=== PATIENT | male | born 1980 | race Caucasian/White ===

== ENCOUNTER 2017-09-06 17:03 | Emergency (ER) | payer OTHER, SELFPAY ==
[2017-09-06 17:46] VITALS: BP 158/96; PULSE 117; RESP 20; TEMP 37.4; O2SAT 98; BMI 29.3
[2017-09-06 17:58] LABS: UTC Influenza A Antigen Negative (Negative); UTC Influenza B Antigen Positive (Negative)
--- NOTE | 2017-09-06 18:06 | HMH.EDUTC ---
[facility] [place] Disposition Clinical Impression: Influenza Sinusitis Qualifiers: Sinusitis location: other Chronicity: unspecified Qualified Code(s): J32.9 - Chronic sinusitis, unspecified Disposition: Home, Self-Care Condition on Discharge: Good Instructions: Sinusitis, Sinus Headache, DI for Sinusitis, How to Avoid a Cold or Flu, DI for Nasal Congestion Additional Instructions: ? Start Tamiflu today if you are going to take it. Discussed risk and possible benefits. ? Lots of rest ? Increase Fluids water, Gatorade, powerade, pedialyte,if infant/toddler/child ? Alternate Tylenol and / or ibuprofen as discussed for fever, aches, chills x 24 hours without medication for symptoms ? Follow up IMMEDIATELY for new or worsening Symptoms OR no noticeable improvement over the next 48-72 hours, 911 for difficulty or breathing ? You or your child area contagious until no fever, aches, chills for 24 hours with medication for symptoms Prescriptions: Ondansetron [Zofran 4mg ODT] 4 mg PO Q8H PRN #10 tab.rapdis PRN Reason: Nausea Oseltamivir Phosphate [Tamiflu 75mg Capsule] 75 mg PO BID #10 cap Promethazine/Dextromethorphan [Promethazine-Dm Syrup] 5 ml PO Q4H PRN #200 syrup PRN Reason: Cough Referrals: Noah Mills MD [Primary Care Provider] - Forms: Work/School Release Time of Disposition: 18:18 Medical Decision Making - Medical Records Medical records reviewed: Yes: I reviewed the patient's medical records. Vital Signs: 09/06/17 17:46 Temperature 99.4 F Temperature Source Temporal Artery Scan Pulse Rate [Right] 117 H Respiratory Rate 20 Blood Pressure [Right Arm] 158/96 Blood Pressure Mean [Right Arm] 116 Blood Pressure Source [Right Arm] Automatic Cuff Blood Pressure Position [Right Arm] Sitting 02 Sat by Pulse Oximetry 98 Oxygen Delivery Method Room Air - Lab Data Lab Results 09/06/17 17:42: Influenza Type A Ag Negative, Influenza Type B Ag Positive A - James Inquiry Pt receiving controlled substance: No James was queried for this patient: No [facility] [place] HPI - General Stated complaint: Fever; body aches; cough;no appetite Mode of Arrival: Ambulatory Source of Information: Patient Limitations: No Limitations Description of Symptoms (Recalled from Triage Doc. by RN): STATES FLU SX X2 DAYS HEENT Symptoms (Recalled from RN notes): Yes Resp Symptoms (Recalled from RN notes): No Skin Symptoms (Recalled from RN notes): No MS Symptoms (Recalled from RN notes): No Functional Status (Recalled from RN notes): N - History of Present Illness Provider Complaint: Patient state that he has been having fever, chills sinus pain and pressure along with nausea and not feeling well State that he thinks he has a sinus infection because his snot changed from yellow to yellowish brown State that he just doesn't feel well - Related Data Previous Rx's Medication Instructions Recorded Ondansetron [Zofran 4mg ODT] 4 mg PO Q8H PRN #10 tab.rapdis 09/06/17 Oseltamivir Phosphate [Tamiflu 75 mg PO BID #10 cap 09/06/17 75mg Capsule] Promethazine/Dextromethorphan 5 ml PO Q4H PRN #200 syrup 09/06/17 [Promethazine-Dm Syrup] Allergies Allergy/AdvReac Type Severity Reaction Status Date / Time No Known Allergies Allergy Verified 09/06/17 17:53 - Worker's Comp Is this a Worker's Comp case?: No [facility] History I have reviewed the patient's past medical history: Yes - *Social History Alcohol Intake: never - Psychiatric History Expresses thoughts of harming self/others: None Suicide Plan Description: No Plan ROS Obtained: Yes All systems reviewed & no additional complaints - Constitutional Constitutional: Reports body ache, Reports chills, Reports fever(s) - ENT Ears, Nose, Mouth, and Throat: Reports sinus pain, Reports sinus pressure, Reports sore throat Physical Exam - General General appearance: alert, in no apparent distress - Expanded ENT Exam Nose exam: Present: sinus tenderness, ot
--- NOTE | 2017-09-06 18:11 | ED_ITS ---
[facility] [place] Disposition Clinical Impression: Influenza Sinusitis Qualifiers: Sinusitis location: other Chronicity: unspecified Qualified Code(s): J32.9 - Chronic sinusitis, unspecified Disposition: Home, Self-Care Condition on Discharge: Good Instructions: Sinusitis, Sinus Headache, DI for Sinusitis, How to Avoid a Cold or Flu, DI for Nasal Congestion Additional Instructions: ? Start Tamiflu today if you are going to take it. Discussed risk and possible benefits. ? Lots of rest ? Increase Fluids water, Gatorade, powerade, pedialyte,if infant/toddler/child ? Alternate Tylenol and / or ibuprofen as discussed for fever, aches, chills x 24 hours without medication for symptoms ? Follow up IMMEDIATELY for new or worsening Symptoms OR no noticeable improvement over the next 48-72 hours, 911 for difficulty or breathing ? You or your child area contagious until no fever, aches, chills for 24 hours with medication for symptoms Prescriptions: Ondansetron [Zofran 4mg ODT] 4 mg PO Q8H PRN #10 tab.rapdis PRN Reason: Nausea Oseltamivir Phosphate [Tamiflu 75mg Capsule] 75 mg PO BID #10 cap Promethazine/Dextromethorphan [Promethazine-Dm Syrup] 5 ml PO Q4H PRN #200 syrup PRN Reason: Cough Referrals: Noah Mills MD [Primary Care Provider] - Forms: Work/School Release Time of Disposition: 18:18 Medical Decision Making - Medical Records Medical records reviewed: Yes: I reviewed the patient's medical records. Vital Signs: 09/06/17 17:46 Temperature 99.4 F Temperature Source Temporal Artery Scan Pulse Rate [Right] 117 H Respiratory Rate 20 Blood Pressure [Right Arm] 158/96 Blood Pressure Mean [Right Arm] 116 Blood Pressure Source [Right Arm] Automatic Cuff Blood Pressure Position [Right Arm] Sitting 02 Sat by Pulse Oximetry 98 Oxygen Delivery Method Room Air - Lab Data Lab Results 09/06/17 17:42: Influenza Type A Ag Negative, Influenza Type B Ag Positive A - James Inquiry Pt receiving controlled substance: No James was queried for this patient: No [facility] [place] HPI - General Stated complaint: Fever; body aches; cough;no appetite Mode of Arrival: Ambulatory Source of Information: Patient Limitations: No Limitations Description of Symptoms (Recalled from Triage Doc. by RN): STATES FLU SX X2 DAYS HEENT Symptoms (Recalled from RN notes): Yes Resp Symptoms (Recalled from RN notes): No Skin Symptoms (Recalled from RN notes): No MS Symptoms (Recalled from RN notes): No Functional Status (Recalled from RN notes): N - History of Present Illness Provider Complaint: Patient state that he has been having fever, chills sinus pain and pressure along with nausea and not feeling well State that he thinks he has a sinus infection because his snot changed from yellow to yellowish brown State that he just doesn't feel well - Related Data Previous Rx's Medication Instructions Recorded Ondansetron [Zofran 4mg ODT] 4 mg PO Q8H PRN #10 tab.rapdis 09/06/17 Oseltamivir Phosphate [Tamiflu 75 mg PO BID #10 cap 09/06/17 75mg Capsule] Promethazine/Dextromethorphan 5 ml PO Q4H PRN #200 syrup 09/06/17 [Promethazine-Dm Syrup] Allergies Allergy/AdvReac Type Severity Reaction Status Date / Time No Known Allergies Allergy Verified 09/06/17 17:53 - Worker's Comp Is this a Worker's Comp case?: No
== END 2017-09-06 18:38 | disposition home or self-care (01) ==
LOC: ER 17:17 → UTC 17:23
PROVIDERS: Emergency Provider Nurse Practitioner; Family Provider Family Medicine; PCP Family Medicine
DX: J11.1 Influenza due to unidentified influenza virus with other respiratory manifestations (principal)
CPT/HCPCS: 87804; 96372; 99201

== ENCOUNTER → 2019-03-06 21:28 | Outpatient (CLI) | payer OTHER, SELFPAY | PROVIDERS: PCP Nurse Practitioner; Visit Provider Nurse Practitioner | DX: R00.2 Palpitations (principal); R06.02 Shortness of breath | CPT/HCPCS: 93225; 93226 ==

== ENCOUNTER 2021-07-04 16:51 | Emergency (ER) | payer BC, SELFPAY ==
[2021-07-04 17:22] VITALS: BP 148/70; PULSE 79; RESP 19; TEMP 36.9; O2SAT 99; BMI 30.9
--- NOTE | 2021-07-04 17:33 | HMH.EDUTC ---
[facility] [place] Disposition Clinical Impression: Sinusitis Qualifiers: Sinusitis location: unspecified location Chronicity: unspecified Qualified Code(s): J32.9 - Chronic sinusitis, unspecified Disposition: Home, Self-Care Condition on Discharge: Good Instructions: Sinusitis, DI for Sinusitis Additional Instructions: *Monitor Temp, Over the counter Motrin or Tylenol as directed/as needed Tylenol every 4 hours and Motrin every 6 hours (as long as your family doctor has told you that you can take it) for fever or pain. and straight to ER if unable to lower temp less than 101.0 after medication given *Warm salt water gargles may help to soothe the throat *Throat Lozenges *Warm fluids like tea with honey may help to soothe the throat *Sleep elevated *Humidifier/Vaporizer Take medication as prescribed FOllow if needed Follow up IMMEDIATELY for new or worsening symptoms or no Noticeable improvement over the next 48-72 hours. 911 for difficulty breathing or swallowing Prescriptions: Benzonatate [Benzonatate 100mg cap] 100 mg PO Q8HP PRN #30 cap PRN Reason: Cough Transmission Status: Pending to [id number] predniSONE [Prednisone 20mg Tab] 20 mg PO BID 5 Days #10 tab Transmission Status: Pending to [id number] Azithromycin [Z-Reginaldo 250mg Tab] 250 mg PO DIRECTED #6 tab Transmission Status: Pending to [id number] Referrals: Noah Mills MD [Primary Care Provider] - As needed Time of Disposition: 17:49 Medical Decision Making - James Inquiry Pt receiving controlled substance: No James was queried for this patient: No Vital Signs: 07/04/21 17:22 07/04/21 17:43 Temperature 98.4 F 98.4 F Temperature Source Oral Pulse Rate 79 Pulse Rate [Right Brachial] 79 Respiratory Rate 19 19 Blood Pressure 148/70 H Blood Pressure [Right Arm] 148/70 H Blood Pressure Mean [Right Arm] 96 Blood Pressure Source [Right Arm] Automatic Cuff Blood Pressure Position [Right Arm] Sitting 02 Sat by Pulse Oximetry 99 [facility] [place] HPI - General Stated complaint: poss sinus infection Time Seen by Provider: 07/04/21 17:33 Description of Symptoms (Recalled from Triage Doc. by RN): PT C/O SINUS PAIN, PRESSURE, AND DRAINAGE WITH A PRODUCTIVE COUGH. COUGHING UP DARK MUSCOUS X'S 3 DAYS. DENIES ANY FEVER. HEENT Symptoms (Recalled from RN notes): No Resp Symptoms (Recalled from RN notes): Yes Skin Symptoms (Recalled from RN notes): No MS Symptoms (Recalled from RN notes): No Functional Status (Recalled from RN notes): WNL - History of Present Illness Provider Complaint: Patient states that he feels like he may have a sinus infection State that he has been having pressure like feeling behind his eyes and sinus headache States that he can feel drainage in the back of his throat and at times he is able to cough it up States that today he was still feeling the pressure so he came in to get checked - Related Data Home Medications Medication Instructions Recorded Confirmed Losartan Potassium 25 mg PO DAILY 08/08/19 05/12/20 Omeprazole 40 mg PO DAILY 08/08/19 05/12/20 Previous Rx's Medication Instructions Recorded Azithromycin [Z-Reginaldo 250mg Tab] 250 mg PO DIRECTED #6 tab 07/04/21 Benzonatate [Benzonatate 100mg 100 mg PO Q8HP PRN #30 cap 07/04/21 cap] predniSONE [Prednisone 20mg 20 mg PO BID 5 Days #10 tab 07/04/21 Tab] Allergies Allergy/AdvReac Type Severity Reaction Status Date / Time No Known Allergies Allergy Verified 05/12/20 17:11 - Worker's Comp Is this a Worker's Comp case?: No Is this an [facility] Worker's Comp?: No Is this a [facility] Worker's Comp?: No [facility] History - Hepatitis A Screen Drug use history?: No High risk sexual behaviors?: No History of sexually transmitted infection?: No Currently employed?: No Childcare worker?: No Do you have indoor plumbing?: Yes Do you have electricity?: Yes Attestation statement:: This patient has been screened for Hepati
[2021-07-04 17:43] VITALS: BP 148/70; PULSE 79; RESP 19; TEMP 36.9; O2SAT 99
== END 2021-07-04 17:50 | disposition home or self-care (01) ==
PROVIDERS: Emergency Provider Nurse Practitioner; PCP Family Medicine
DX: J32.9 Chronic sinusitis, unspecified (principal)
CPT/HCPCS: 99202; G0463

== ENCOUNTER 2021-08-19 09:19 | Emergency (ER) | payer BC, SELFPAY ==
[2021-08-19 10:45] VITALS: BP 149/92; PULSE 91; RESP 19; TEMP 36.8; O2SAT 98; BMI 36.4
[2021-08-19 11:01] VITALS: BP 149/92; PULSE 91; RESP 19; TEMP 36.8; O2SAT 98
--- NOTE | 2021-08-19 11:31 | HMH.EDUTC ---
[facility] Disposition Clinical Impression: Sinusitis Qualifiers: Sinusitis location: unspecified location Chronicity: unspecified Qualified Code(s): J32.9 - Chronic sinusitis, unspecified Disposition: Home, Self-Care Condition on Discharge: Good Instructions: Sinusitis, DI for Sinusitis, Azithromycin, Prednisone Additional Instructions: *Monitor Temp, Over the counter Motrin or Tylenol as directed/as needed Tylenol every 4 hours and Motrin every 6 hours (as long as your family doctor has told you that you can take it) for fever or pain. and straight to ER if unable to lower temp less than 101.0 after medication given *Warm salt water gargles may help to soothe the throat *Throat Lozenges *Warm fluids like tea with honey may help to soothe the throat *Sleep elevated *Humidifier/Vaporizer Follow up IMMEDIATELY for new or worsening symptoms or no Noticeable improvement over the next 48-72 hours. 911 for difficulty breathing or swallowing You were tested for today for COVID19 your test result should be back in the next 24-48 hours, you may check your results on the [facility] My Health Portal if you have trouble logging on you can call support or you will get a call if your results are Positive You was given a handout with instructions for Self Quarantine and Self isolation for while you wait on test results and what to do if they are positive If you are positive the Health Dept will be contacting you also Make sure to take your Vitamins Vit. C Vit D and Zinc if you can take them Prescriptions: Benzonatate [Benzonatate 100mg cap] 100 mg PO Q8HP PRN #15 cap PRN Reason: Cough Transmission Status: Pending to [facility] predniSONE [Prednisone 20mg Tab] 20 mg PO BID #10 tab Transmission Status: Pending to [facility] Azithromycin [Z-Reginaldo 250mg Tab] 250 mg PO DIRECTED #6 tab Transmission Status: Pending to [facility] Referrals: Noah Mills MD [Primary Care Provider] - Forms: Work/School Release Medical Decision Making - James Inquiry Pt receiving controlled substance: No James was queried for this patient: No Vital Signs: 08/19/21 10:45 08/19/21 11:01 Temperature 98.2 F 98.2 F Temperature Source Oral Pulse Rate 91 H Pulse Rate [Right Brachial] 91 H Respiratory Rate 19 19 Blood Pressure 149/92 H Blood Pressure [Right Arm] 149/92 H Blood Pressure Mean [Right Arm] 111 Blood Pressure Source [Right Arm] Automatic Cuff Blood Pressure Position [Right Arm] Sitting 02 Sat by Pulse Oximetry 98 Oxygen Delivery Method Room Air Orders (Tests/Meds): ORDERS Category Date Time Status Covid-19 Nasal PCR ([facility]) Routine Lab 08/19/21 10:55 Received Medical Decision Narrative: Patient state that he has taken azithromycin and prednisone in the past without complications or reactions [facility] HPI - General Stated complaint: cough,runny nose,congestion Time Seen by Provider: 08/19/21 11:31 Mode of Arrival: Ambulatory Source of Information: Patient Limitations: No Limitations Description of Symptoms (Recalled from Triage Doc. 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
== END 2021-08-19 11:51 | disposition home or self-care (01) ==
PROVIDERS: Emergency Provider Nurse Practitioner; PCP Family Medicine
DX: J32.9 Chronic sinusitis, unspecified (principal); U07.1 COVID-19
CPT/HCPCS: 99202; C9803; G0463; U0003; U0005

== ENCOUNTER 2022-02-20 17:48 | Emergency (ER) | payer BC, SELFPAY ==
[2022-02-20 18:00] VITALS: BP 120/86; PULSE 80; RESP 18; TEMP 36.6; O2SAT 97; BMI 28.7
--- NOTE | 2022-02-20 18:30 | HMH.EDUTC ---
[facility] [place] Clinical Impression: Sinusitis Qualifiers: Sinusitis location: unspecified location Chronicity: acute Recurrence: non-recurrent Qualified Code(s): J01.90 - Acute sinusitis, unspecified Disposition: Home, Self-Care Condition on Discharge: Good Instructions: DI for Sinusitis Additional Instructions: Drink plenty of fluids. Take tylenol or ibuprofen for pain or fever. Take the medications as directed. Follow up with your regular doctor. GO TO THE ER FOR ANY WORSENING SYMPTOMS Prescriptions: Benzonatate [Benzonatate 100mg cap] 100 mg PO TIDP PRN #30 cap PRN Reason: Cough Transmission Status: Received by [facility] methylPREDNISolone [Medrol] 4 mg PO DIRECTED 6 Days #21 packet Transmission Status: Received by [id number] Azithromycin [Z-Reginaldo 250mg Tab*] 250 mg PO UD DOSE PK #6 tab Transmission Status: Received by [id number] Referrals: Noah Mills MD [Primary Care Provider] - Time of Disposition: 18:39 Medical Decision Making - Medical Records Medical records reviewed: No: I reviewed the patient's medical records. - James Inquiry Pt receiving controlled substance: No Vital Signs: 02/20/22 18:00 02/20/22 18:40 Temperature 97.8 F 97.8 F Temperature Source Oral Pulse Rate 80 Pulse Rate [Right Brachial] 80 Respiratory Rate 18 18 Blood Pressure 120/86 Blood Pressure [Right Arm] 120/86 Blood Pressure Mean [Right Arm] 97 Blood Pressure Source [Right Arm] Automatic Cuff Blood Pressure Position [Right Arm] Sitting 02 Sat by Pulse Oximetry 97 Oxygen Delivery Method Room Air [facility] [place] - General Stated complaint: cough and congestion Time Seen by Provider: 02/20/22 18:30 Mode of Arrival: Ambulatory Source of Information: Patient Limitations: No Limitations Description of Symptoms (Recalled from Triage Doc. by RN): PATIENT C/O SINUS CONGESTION THAT STARTED MONDAY HEENT Symptoms (Recalled from RN notes): Yes Resp Symptoms (Recalled from RN notes): No Skin Symptoms (Recalled from RN notes): No MS Symptoms (Recalled from RN notes): No Functional Status (Recalled from RN notes): WNL - History of Present Illness Provider Complaint: He states that for the past 2 days he has had worsening sinus congestion. He denies any fever or chills. He refuses a covid-19 test. - Related Data Home Medications Medication Instructions Recorded Confirmed Losartan Potassium 25 mg PO DAILY 08/08/19 02/20/22 Omeprazole 40 mg PO DAILY 08/08/19 02/20/22 Previous Rx's Medication Instructions Recorded Azithromycin [Z-Reginaldo 250mg Tab*] 250 mg PO UD DOSE PK #6 tab 02/20/22 Benzonatate [Benzonatate 100mg 100 mg PO TIDP PRN #30 cap 02/20/22 cap] methylPREDNISolone [Medrol] 4 mg PO DIRECTED 6 Days #21 02/20/22 packet Allergies Allergy/AdvReac Type Severity Reaction Status Date / Time No Known Allergies Allergy Verified 05/12/20 17:11 - Worker's Comp Is this a Worker's Comp case?: No [facility] History - Hepatitis A Screen Attestation statement:: This patient has been screened for Hepatitis A risk factors. I have reviewed the patient's past medical history: Yes Laterality Cases: Left: Arthroscopy Hip, Arthroscopy Knee - Social History Smoking Status: Never smoker Alcohol Intake: current Occupational Status: other Household Members: family ROS Obtained: Yes All systems reviewed & no additional complaints - Constitutional Constitutional: Reports as per HPI - Eyes Eyes: Denies eye discharge - ENT Ears, Nose, Mouth, and Throat: Reports as per HPI - Cardiovascular Cardiovascular: Denies chest pain - Respiratory Respiratory: Reports chest congestion, Reports cough Physical Exam - General General appearance: alert, in no apparent distress - Head Head exam: atraumatic, normocephalic, normal inspection - Eye Eye exam: Present: normal appearance, PERRL, EOMI - ENT ENT exam: Present:
[2022-02-20 18:40] VITALS: BP 120/86; PULSE 80; RESP 18; TEMP 36.6; O2SAT 97
== END 2022-02-20 18:44 | disposition home or self-care (01) ==
PROVIDERS: Emergency Provider Nurse Practitioner Family; PCP Family Medicine
DX: J01.90 Acute sinusitis, unspecified (principal)
CPT/HCPCS: 99212; G0463

== ENCOUNTER → 2023-03-01 23:19 | Outpatient (CLI) | payer BC, OTHER, SELFPAY ==
[2023-03-01 18:31] LABS: Basophils % 0.5 % (0.1-2.0); Eosinophils # 0.3 K/mm3 (0.0-0.4); Eosinophils % 5.2 % (0.1-12.0); Hematocrit 46.5 % (42.0-52.0); Hemoglobin 14.5 g/dL (14.1-18.0); Lymphocytes # 1.4 K/mm3 (0.7-4.5); Lymphocytes % 29.6 % (10-50); Mean Corpuscular HGB Conc 31.1 g/dL (31.8-35.4); Mean Corpuscular Hemoglobin 28.2 pg (27.0-31.2); Mean Corpuscular Volume 90.8 fl (80-94); Mean Platelet Volume 9.1 fl (7.4-10.4); Monocytes # 0.4 K/mm3 (0.1-1.0); Monocytes % 7.9 % (1.7-9.3); Neutrophils # 2.7 K/mm3 (1.8-7.8); Neutrophils % 56.9 % (37.0-80.0); Platelet Count 301 K/mm3 (142-424); Red Blood Count 5.12 M/mm3 (4.60-6.20); Red Cell Distribution Width 13.8 % (11.5-17.5); White Blood Count 4.8 K/mm3 (4.8-10.8)
[2023-03-01 18:59] LABS: Alanine Aminotransferase 30 U/L (12-78); Albumin Level 4.3 g/dl (3.5-5.0); Albumin/Globulin Ratio 1.4 (1.1-1.8); Alkaline Phosphatase 80 U/L (38-126); Anion Gap 11.7 mEq/L (5-15); Aspartate Amino Transferase 30 U/L (17-59); Bilirubin,Total 0.3 mg/dl (0.2-1.3); Blood Urea Nitrogen 19 mg/dl (9-20); Calcium 9.3 mg/dl (8.4-10.2); Carbon Dioxide 30 mmol/L (22.0-30.0); Chloride 106 mmol/L (98-107); Cholesterol 294 mg/dl (140-200); Estimated Glomerular Filt Rate 81 ml/min (>60); GFR (African American) 98 ML/MIN (>60); Globulin 3.1 g/dL (1.3-3.2); Glucose 112 mg/dl (74-100); HDL Cholesterol 59 mg/dl (40-60); Potassium 4.7 mmoL/L (3.5-5.1); Sodium 143 mmol/L (136-145); Total Protein,Serum 7.4 g/dl (6.3-8.2); Triglycerides 264 mg/dl (30-150); VLDL Cholesterol 53 mg/dL (0-40)
[2023-03-01 19:15] LABS: Direct LDL Cholesterol 168.01 mg/dL (100-129)
[2023-03-02 14:59] LABS: Hemoglobin A1C 5.8 % (4.0-6.0)
== END ==
PROVIDERS: PCP Family Medicine; Visit Provider Family Medicine
DX: R20.2 Paresthesia of skin (principal); Z79.899 Other long term (current) drug therapy
CPT/HCPCS: 80053; 80061; 83036; 84443; 85025

== ENCOUNTER → 2023-03-28 13:18 | Outpatient (POV) | payer BC, OTHER, SELFPAY | PROVIDERS: Visit Provider Specialist/Technologist | DX: Z00.00 Encounter for general adult medical examination without abnormal findings (principal) ==

== ENCOUNTER 2023-05-19 23:09 | Emergency (ER) | payer BC, OTHER, SELFPAY ==
[2023-05-19 23:10] VITALS: BP 160/92; PULSE 95; RESP 17; TEMP 36.8; O2SAT 97; BMI 29.9
--- NOTE | 2023-05-19 23:19 | PC.NURSE ---
Wound cleaned with chlorhexidine. Provider to bedside to assess wound. Provider requested lidocaine with epi for wound at this time. After provider administered, applied pressure bandage to wound.
--- NOTE | 2023-05-19 23:26 | XR_ITS ---
PROCEDURE INFORMATION: Exam: XR Right Shoulder Exam date and time: 05/19/2023 11:22 PM Age: 43 years old Clinical indication: Injury or trauma; Other: Puncture wound from mowing, R/O foreign body; Shoulder; Right; Additional info: Puncture wound from mowing, RO foreign body TECHNIQUE: Imaging protocol: Radiologic exam of the right shoulder. Views: 2 or more views. COMPARISON: No relevant prior studies available. FINDINGS: Bones/joints: No acute fracture or malalignment. Mild acromioclavicular and glenohumeral joint degenerative changes. Soft tissues: No radiopaque soft tissue foreign body. IMPRESSION: No radiopaque soft tissue foreign body. No acute osseous findings.
[2023-05-19 23:30] VITALS: BP 147/96; PULSE 97; O2SAT 97
--- NOTE | 2023-05-19 23:34 | HMH.EDGENADL ---
Discharge Plan Disposition Patient Disposition: Home, Self-Care Condition: Good Prescriptions Prescriptions: New cephalexin 500 mg capsule 500 mg PO TID 5 Days Qty: 15 0RF No Action phentermine [Adipex-P] 37.5 mg tablet 37.5 mg PO DAILY Qty: 30 2RF Rx Instructions: must administer 30 minutes before or 1-2 hours after breakfast azelastine 137 mcg (0.1 %) aerosol,spray 2 spray intranasal BID Qty: 30 3RF Rx Instructions: administer into each nostril venlafaxine 37.5 mg capsule,extended release 24hr See Rx Instructions .ROUTE .COMPLEX Qty: 90 3RF Dose Instruction: TAKE 1 CAPSULE DAILY Rx Instructions: TAKE 1 CAPSULE DAILY topiramate 50 mg tablet 50 mg PO DAILY Qty: 30 2RF omeprazole 40 mg capsule,delayed release(DR/EC) See Rx Instructions .ROUTE .COMPLEX Qty: 90 0RF Dose Instruction: TAKE 1 CAPSULE DAILY FOR GASTROESOPHAGEAL REFLUX DISEASE Rx Instructions: TAKE 1 CAPSULE DAILY FOR GASTROESOPHAGEAL REFLUX DISEASE losartan 25 mg tablet See Rx Instructions .ROUTE .COMPLEX Qty: 90 0RF Dose Instruction: TAKE 1 TABLET DAILY FOR HYPERTENSION Rx Instructions: TAKE 1 TABLET DAILY FOR HYPERTENSION Referrals Follow up/Referrals: Andrea Ramirez MD [Primary Care Provider] - See instructions Activity Restrictions/Add. Instructions Additional Instructions/Restrictions: You were evaluated in the emergency department today. Please clam picker your prescription at the pharmacy and complete the full course of antibiotics as prescribed. Keep your wound clean and dry. Do not submerge under any water. Allow the glue to fall off on its own. Should you start having bleeding again, apply direct pressure to the wound for at least 10 minutes. Return to the emergency department for any new or worsening symptoms. Clinical Impressions Clinical Impression: Puncture wound of right upper arm Qualifiers: Encounter type: initial encounter Qualified Code(s): S41.131A - Puncture wound without foreign body of right upper arm, initial encounter Instructions Patient Instructions: DI for Laceration Repair Discharge ED Provider: Destiny Guillory General Adult HPI General Chief complaint: Wound/Laceration Stated complaint: right arm laceration Time Seen by Provider: 05/19/23 23:10 Mode of Arrival: Ambulatory Source of Information: Patient Limitations: No Limitations Description of Symptoms (Recalled from ER Triage Doc. by RN): Patient reports he was doing yardwork today between about 3 and 6pm and at some point may have had a laceration to the posterior upper arm. Patient reports that bleeding will not stop. Upon triage, wound approximately 1 cm with small active bleeding. History of Present Illness HPI narrative: This patient is a 43-year-old male with history of hypertension and GERD presenting to the emergency department for evaluation with concern for wound to the posterior aspect of the right upper arm. Patient reports that he was mowing between 3 and 6 PM when he at some point noted that he had a wound to the posterior aspect of the right upper arm that was actively oozing blood. He has been unable to get the bleeding to stop despite dressings. He does not remember feeling any pain or noting any significant injury. He denies use of anticoagulation. He denies any significant pain associated with this. He is well prior to this with no other concerns at this time. Related Data Previous Rx's Medication Instructions Recorded venlafaxine 37.5 mg See Rx Instructions .Route 01/30/23 capsule,extended release 24 hr .COMPLEX #90 caps phentermine 37.5 mg tablet 37.5 mg PO DAILY #30 tabs 03/01/23 (Adipex-P) topiramate 50 mg tablet 50 mg PO DAILY #30 tabs 03/07/23 azelastine 137 mcg (0.1 %) nasal 2 spray intranasal BID Eustachian 03/28/23 spray aerosol tube dysfunction #30 mL losartan 25 mg tablet See Rx Instructions .Route 03/28/23 .COMPLEX #90 tabs omeprazol
[2023-05-20] VITALS: BP 130/76
--- NOTE | 2023-05-20 00:20 | PC.NURSE ---
Reassessed wound, no active bleeding at this time. Notified provider.
[2023-05-20 00:31] VITALS: BP 120/77
[2023-05-20 00:32] VITALS: BP 120/77; PULSE 84; RESP 18; TEMP 36.7; O2SAT 99
== END 2023-05-20 00:34 | disposition home or self-care (01) ==
PROVIDERS: Emergency Provider Emergency Medicine; PCP Family Medicine
DX: S41.131A Puncture wound without foreign body of right upper arm, initial encounter (principal); I10 Essential (primary) hypertension; K21.9 Gastro-esophageal reflux disease without esophagitis; G47.00 Insomnia, unspecified; F41.9 Anxiety disorder, unspecified; H93.13 Tinnitus, bilateral; X58.XXXA Exposure to other specified factors, initial encounter
CPT/HCPCS: 12001; 73030; 90715; 96372; 99283

== ENCOUNTER 2023-08-20 17:26 | Emergency (ER) | payer BC, OTHER, SELFPAY ==
[2023-08-20 17:45] VITALS: BP 137/85; PULSE 71; RESP 18; TEMP 36.8; O2SAT 96; BMI 34.1
--- NOTE | 2023-08-20 17:48 | EXP.UTC ---
Discharge Plan Disposition Patient Disposition: Home, Self-Care Condition: Good Prescriptions Prescriptions: New benzonatate [benzonatate] 100 mg capsule 100 mg PO TIDP PRN (Reason: Cough) Qty: 30 0RF methylprednisolone 4 mg Tablets,Dose Pack 4 mg PO DIRECTED 6 Days Qty: 21 0RF Rx Instructions: Take 1 pack as directed for 6 days amoxicillin-pot clavulanate 875-125 mg Tablet 1 tab PO Q12H Qty: 20 0RF guaifenesin [Mucinex] 600 mg tablet extended release 12hr 600 - 1,200 mg PO BIDP PRN (Reason: Congestion) Qty: 30 0RF No Action venlafaxine 37.5 mg capsule,extended release 24hr See Rx Instructions .ROUTE .COMPLEX Qty: 90 3RF Dose Instruction: TAKE 1 CAPSULE DAILY Rx Instructions: TAKE 1 CAPSULE DAILY losartan 25 mg tablet See Rx Instructions .ROUTE .COMPLEX Qty: 90 0RF Dose Instruction: TAKE 1 TABLET DAILY FOR HYPERTENSION Rx Instructions: TAKE 1 TABLET DAILY FOR HYPERTENSION omeprazole 40 mg capsule,delayed release(DR/EC) See Rx Instructions .ROUTE .COMPLEX Qty: 90 0RF Dose Instruction: TAKE 1 CAPSULE DAILY FOR GASTROESOPHAGEAL REFLUX DISEASE Rx Instructions: TAKE 1 CAPSULE DAILY FOR GASTROESOPHAGEAL REFLUX DISEASE Referrals Follow up/Referrals: Andrea Ramirez MD [Primary Care Provider] - See instructions Activity Restrictions/Add. Instructions Additional Instructions/Restrictions: Drink plenty of fluids. Take tylenol or ibuprofen for pain or fever. Take the medications as directed. Follow up with your regular doctor. GO TO THE ER FOR ANY WORSENING SYMPTOMS Clinical Impressions Clinical Impression: Sinusitis Instructions Patient Instructions: DI for Sinusitis, Sinusitis, Amoxicillin and Clavulanic Acid, Methylprednisolone Discharge ED Provider: Andi Norris [facility] General Stated complaint: ASHLY contreras, Time Seen by Provider: 08/20/23 17:48 History of Present Illness Provider Complaint: He states that for the past 2 days he has had worsening sinus congestion, sinus pressure, and ear pain. He denies any fever/chills/body aches. Related Data Previous Rx's Medication Instructions Recorded venlafaxine 37.5 mg See Rx Instructions .Route 01/30/23 capsule,extended release 24 hr .COMPLEX #90 caps losartan 25 mg tablet See Rx Instructions .Route 06/26/23 .COMPLEX #90 tabs omeprazole 40 mg capsule,delayed See Rx Instructions .Route 06/26/23 release .COMPLEX #90 caps amoxicillin 875 mg-potassium 1 tab PO Q12H #20 tabs 08/20/23 clavulanate 125 mg tablet benzonatate 100 mg capsule 100 mg PO TIDP PRN Cough #30 caps 08/20/23 guaifenesin 600 mg tablet, 600 - 1,200 mg PO BIDP PRN 08/20/23 extended release 12 hr (Mucinex) Congestion #30 tabs methylprednisolone 4 mg tablets in 4 mg PO DIRECTED 6 days #21 tabs 08/20/23 a dose pack Allergies Allergy/AdvReac Type Severity Reaction Status Date / Time No Known Allergies Allergy Verified 08/20/23 17:59 [facility] Disclaimer: The information contained in this section may have been updated after the patient was seen, as this information can be updated by other users. Medical History Anxiety Bilateral tinnitus Chronic GERD Dry both ear canals Erectile dysfunction Hypertension Insomnia Weight gain Surgical History H/O hernia repair H/O left knee surgery Family History Mother Cancer Grandfather Cancer Coronary artery disease Heart attack Stroke Grandmother Cancer Heart attack Father Coronary artery disease Diabetes Hypertension Social History Smoking Status: Never smoker alcohol intake: current substance use type: denies use current occupational status: employed (retail management) Travel in the last 8 weeks: None household members: spouse and children housing: house ROS Obtained: Yes All systems reviewed & no additional complaints except as documented Constitutional Constitutional: Reports poor appetite Eyes Eyes: Reports system reviewed and no additional complaints, except as documented ENT Ears, Nose, Mouth, and Throat: Reports as per HPI Cardiovascular Cardiovascular: Reports system reviewed and no additional complaints, except as documented and Denies chest pain Respiratory Respiratory: Denies shortness of breath, Denies chest congestion, Reports cough, Denies stridor and Denies wheezing Gastrointestinal Gastrointestingal: Reports system reviewed and no additional complaints, except as documented; Denies abdominal pain, diarrhea or vomiting Musculoskeletal Musculoskeletal: Reports system reviewed and no additional complaints, except as documented and Denies arthralgias Integumentary/Breasts Skin/Breast: Reports system reviewed and no additional complaints, except as documented and Denies rash Neurologic Neurologic: Denies paresthesias Allergic/Immunologic Allergic/Immunologic: Denies wheezing Physical Exam General General appearance: alert and in no apparent distress Eye Eye exam: Present normal appearance, PERRL and EOMI ENT ENT exam: Present mucous membranes moist and normal external ear exam Expanded ENT Exam External ear exam: Present normal external inspection TM/Canal exam: Bilateral TM: erythema and bulging Nose exam: Absent sinus tenderness Nasal speculum exam: Bilateral: normal Mouth exam: Present normal external inspection; Absent drooling Teeth exam: Present normal inspection Throat exam: Present tonsillar erythema and tonsillomegaly Neck Neck exam: Present normal inspection, full ROM and trachea midline; Absent tenderness, lymphadenopathy or thyromegaly Chest Chest inspection: Present normal inspection and symmetric chest wall rise; Absent tenderness or rash Respiratory Respiratory exam: Present normal lung sounds bilaterally; Absent respiratory distress, wheezes, stridor or accessory muscle use Cardiovascular Cardiovascular exam: Present regular rate, normal rhythm and normal heart sounds Abdominal Exam Abdominal exam: Present soft; Absent distention, tenderness, guarding, rebound or rigidity Extremities Exam Extremities exam: Present normal inspection, full ROM and normal capillary refill; Absent tenderness or calf tenderness Back Exam Back exam: Present normal inspection and full ROM; Absent tenderness Neurological Exam Neurological exam: Present alert and oriented X3 Psychiatric Psychiatric exam: Present normal affect and normal mood Skin Skin exam: Present warm, dry, intact and normal color Lymphatic Lymphatic Findings: no adenopathy Medical Decision Making Medical Records Medical records reviewed: No I reviewed the patient's medical records. James Inquiry Pt receiving controlled substance: No
[2023-08-20 18:12] VITALS: BP 137/85; PULSE 71; RESP 18; TEMP 36.8; O2SAT 96
== END 2023-08-20 18:12 | disposition home or self-care (01) ==
PROVIDERS: Emergency Provider Nurse Practitioner Family; PCP Family Medicine
DX: J01.90 Acute sinusitis, unspecified (principal); R51.9 Headache, unspecified; R09.81 Nasal congestion; H92.03 Otalgia, bilateral; K21.9 Gastro-esophageal reflux disease without esophagitis; I10 Essential (primary) hypertension
CPT/HCPCS: 99212; 99214; G0463

== ENCOUNTER 2023-10-12 09:03 | Outpatient (CLI) | payer BC, SELFPAY ==
--- NOTE | 2023-10-12 09:10 | XR_ITS ---
FINAL REPORT CLINICAL HISTORY: lt knee pain, swelling, and limited mobility x few weeks COMPARISON: None FINDINGS: Three views of the left knee reveal no evidence of fracture or dislocation. The bony alignment is normal. Mild and moderate degenerative change is present. A small joint effusion is present. No localized soft tissue abnormality is seen. IMPRESSION: No acute abnormality identified. Mild and moderate degenerative change with a small joint effusion. Reviewed, Interpreted and Dictated by Jamarcus Lanier III, MD Transcribed by Juli Phillips Authenticated and [facility]
== END 2023-10-12 23:59 ==
LOC: RAD 09:04
PROVIDERS: PCP Family Medicine; Visit Provider Orthopaedic Surgery
DX: M25.562 Pain in left knee (principal)
CPT/HCPCS: 73562

== ENCOUNTER 2023-11-01 18:55 | Outpatient (CLI) | payer BC, SELFPAY ==
[2023-11-01 16:45] LABS: Basophils % 0.8 % (0.1-2.0); Eosinophils # 0.3 K/mm3 (0.0-0.4); Eosinophils % 4.8 % (0.1-12.0); Hematocrit 45.7 % (42.0-52.0); Hemoglobin 14.4 g/dL (14.1-18.0); Lymphocytes # 1.6 K/mm3 (0.7-4.5); Lymphocytes % 29.9 % (10-50); Mean Corpuscular HGB Conc 31.6 g/dL (31.8-35.4); Mean Corpuscular Hemoglobin 29.5 pg (27.0-31.2); Mean Corpuscular Volume 93.4 fl (80-94); Monocytes # 0.4 K/mm3 (0.1-1.0); Neutrophils % 56.4 % (37.0-80.0); Platelet Count 276 K/mm3 (142-424); Red Blood Count 4.89 M/mm3 (4.60-6.20); Red Cell Distribution Width 13.7 % (11.5-17.5); White Blood Count 5.3 K/mm3 (4.8-10.8)
[2023-11-01 17:24] LABS: Chloride 110 mmol/L (98-107); Potassium 4.7 mmoL/L (3.5-5.1); Sodium 142 mmol/L (136-145)
[2023-11-01 17:26] LABS: Alanine Aminotransferase 43 U/L (12-78); Aspartate Amino Transferase 37 U/L (17-59); Blood Urea Nitrogen 21 mg/dl (9-20); Estimated Glomerular Filt Rate 91 ml/min (>60); GFR (African American) 110 ML/MIN (>60)
[2023-11-01 17:27] LABS: Albumin Level 4.1 g/dl (3.5-5.0); Albumin/Globulin Ratio 1.4 (1.1-1.8); Alkaline Phosphatase 68 U/L (38-126); Anion Gap 8.7 mEq/L (5-15); Bilirubin,Total 0.3 mg/dl (0.2-1.3); Calcium 9.3 mg/dl (8.4-10.2); Carbon Dioxide 28 mmol/L (22.0-30.0); Cholesterol 279 mg/dl (140-200); Globulin 2.9 g/dL (1.3-3.2); Glucose 107 mg/dl (74-100); Triglycerides 190 mg/dl (30-150); VLDL Cholesterol 38 mg/dL (0-40)
[2023-11-01 17:28] LABS: Chol/HDL Ratio 5.8 (1-3.5); HDL Cholesterol 48 mg/dl (40-60)
[2023-11-01 17:39] LABS: Direct LDL Cholesterol 160.82 mg/dL (100-129)
[2023-11-01 17:58] LABS: Thyroid Stimulating Hormone 0.73 uIU/mL (0.465-4.68)
[2023-11-01 18:48] LABS: Hemoglobin A1C 6.1 % (4.0-6.0)
== END 2023-11-01 23:59 ==
LOC: LAB.DROPOF 18:55
PROVIDERS: PCP Family Medicine; Visit Provider Family Medicine
DX: I10 Essential (primary) hypertension (principal); R63.5 Abnormal weight gain; Z68.34 Body mass index [BMI] 34.0-34.9, adult
CPT/HCPCS: 80053; 80061; 83036; 84443; 85025

== ENCOUNTER 2024-01-31 16:42 | Outpatient (CLI) | payer BC, SELFPAY ==
[2024-01-31 16:41] LABS: Basophils # 0.1 K/mm3 (0-0.2); Basophils % 1.1 % (0.1-2.0); Eosinophils # 0.2 K/mm3 (0.0-0.4); Eosinophils % 4.4 % (0.1-12.0); Hemoglobin 14.2 g/dL (14.1-18.0); Lymphocytes # 1.5 K/mm3 (0.7-4.5); Lymphocytes % 28.4 % (10-50); Mean Corpuscular HGB Conc 32.3 g/dL (31.8-35.4); Mean Corpuscular Hemoglobin 29.5 pg (27.0-31.2); Mean Corpuscular Volume 91.4 fl (80-94); Mean Platelet Volume 9.4 fl (7.4-10.4); Monocytes # 0.4 K/mm3 (0.1-1.0); Monocytes % 7.2 % (1.7-9.3); Neutrophils % 58.8 % (37.0-80.0); Platelet Count 312 K/mm3 (142-424); Red Blood Count 4.81 M/mm3 (4.60-6.20); White Blood Count 5.2 K/mm3 (4.8-10.8)
[2024-01-31 17:14] LABS: Alanine Aminotransferase 59 U/L (12-78); Albumin Level 4.1 g/dl (3.5-5.0); Albumin/Globulin Ratio 1.3 (1.1-1.8); Alkaline Phosphatase 85 U/L (38-126); Anion Gap 12.5 mEq/L (5-15); Aspartate Amino Transferase 46 U/L (17-59); Bilirubin,Total 0.4 mg/dl (0.2-1.3); Blood Urea Nitrogen 20 mg/dl (9-20); Calcium 9.3 mg/dl (8.4-10.2); Carbon Dioxide 29 mmol/L (22.0-30.0); Chloride 103 mmol/L (98-107); Chol/HDL Ratio 4.6 (1-3.5); Cholesterol 237 mg/dl (140-200); Estimated Glomerular Filt Rate 81 ml/min (>60); GFR (African American) 98 ML/MIN (>60); Globulin 3.2 g/dL (1.3-3.2); Glucose 134 mg/dl (74-100); HDL Cholesterol 51 mg/dl (40-60); Potassium 4.5 mmoL/L (3.5-5.1); Sodium 140 mmol/L (136-145); Total Protein,Serum 7.3 g/dl (6.3-8.2); Triglycerides 280 mg/dl (30-150); VLDL Cholesterol 56 mg/dL (0-40)
[2024-01-31 17:26] LABS: Direct LDL Cholesterol 133.26 mg/dL (100-129)
[2024-01-31 17:51] LABS: Hemoglobin A1C 6.1 % (4.0-6.0)
[2024-01-31 18:15] LABS: Thyroid Stimulating Hormone 1.76 uIU/mL (0.465-4.68)
== END 2024-01-31 23:59 | disposition home or self-care (01) ==
LOC: LAB.DROPOF 16:42
PROVIDERS: PCP Family Medicine; Visit Provider Family Medicine
DX: E11.9 Type 2 diabetes mellitus without complications (principal); Z79.85 Long-term (current) use of injectable non-insulin antidiabetic drugs
CPT/HCPCS: 80050; 80053; 80061; 83036; 84443; 85025

== ENCOUNTER 2024-07-03 12:34 | Outpatient (CLI) | payer BC, SELFPAY ==
--- OUTSIDE RECORDS SUMMARY | 2024-07-03 12:36 | XMS_ITS | Encounter Summary ---
[facility] Address [address] [place] [id number] Care Team Providers Care Environmental Services Manager Name Role Phone Unavailable Primary Care Provider Unavailabl e Reason for Visit * Reason Comments Med Refill Encounter Details Date Type Department Care Team (Late st Contact Info) Description 10/04/2022 Refill [facility] [address] [place] [address] Noah Mills MD [address] [place] [address] Social History Tobacco Use Types Packs/Day Years Used Date Smoking Tobacco: Never Assessed Sex and Gender Information Value Date Recorded Sex Assigned at Not on file Legal Sex Male 2:48 PM EDT Gender Identity Not on file Sexual Orientation Not on file documented as of this encounter Plan of Treatment Not on file documented as of this encounter Visit Diagnoses Not on filedocumented in this encounter
--- OUTSIDE RECORDS SUMMARY | 2024-07-03 12:36 | XMS_ITS | Clinical Summary ---
Author Organization [facility] Address [address] [place] [address] Care Team Providers Care Water Resources Program Director Name Role Phone Unavailable Primary Care Provider Unavailabl e Social History Tobacco Use Types Packs/Day Years Used Date Smoking Tobacco: Never Assessed Abuse Screen Answer Date Recorded Unsafe at Home or Work/School Not on file Feels Threatened by Someone? Not on file Does Anyone Keep You from Co ntacting Others or Doint Things Outside the Home? Not on file 05/19/2023 Physical Sign of Abuse Present Not on file 1 Housing Stability Answer Date Recorded Current Living Arrangements Not on file 05/07 Potentially Unsafe Housing Conditions Not on faby e 05/19/2023 Family and Community Support Answer Joe e Recorded Help with Day-to-Day Activities Not on file 05/19/2023 Lonely or Isolated Not on file 05/19/2023 Employment Answer Date Recorded Do you want help finding or keeping work or a cheryl b? Not on file 05/19/2023 Disabilities Answer Date Recorded Concentrating, Remembering, or Making Decisions Difficulty Not on file 05/19/2023 Doing Errands Independently Difficulty Not on fi le 05/19/2023 Education Answer Date Recorded Help with school or training? Not on file Preferred Language Not on file 05/19/2023 Sex and Gender Information Value Date Recorded Sex Assigned at Not on file Legal Sex Male 2:48 PM EDT Gender Identity Not on file Sexual Orientation Not on file Plan of Treatment Health Maintenance Due Date Last Done Comments COLOGUARD 1978 COLON CANCER SCREENING 5 YEA R SIGMOIDOSCOPY 1978 COLONOSCOPY [address]CER SCREENING 1978 CT COLONOGRAPHY 1978 FECAL OCCULT BLOOD TEST 1978 FIT Testing (1 year) 1978 TDAP/TD VACCINES (1 - Tdap) 1997 ANNUAL PHYSICAL 03/18/2022 HEPATITIS C SCREENING 03/18/2022 INFLUENZA VACCINE 02/05/2024 COVID-19 Vaccine (1 - 2023-2 5 season) 2024 Pneumococcal Vaccine 0-64 Aged Out No longer eligible based on patient's age to complete this topic Insurance PPO
--- OUTSIDE RECORDS SUMMARY | 2024-07-03 12:36 | XMS_ITS | Encounter Summary ---
[facility] Address [address] [place] [address] Care Team Providers Care Social Security Specialist Name Role Phone Unavailable Primary Care Provider Unavailabl e Reason for Visit * Reason Onset Date Comments Appointment 03/18/2022 Encounter Details Date Type Department Care Team (Late st Contact Info) Description 03/18/2022 Telephone [facility] [address] [place] [address] Noah Morse MD [address] [place] [address] Appointment Social History Tobacco Use Types Packs/Day Years [...] on file documented as of this encounter Miscellaneous Notes * Telephone Encounter - Amanda Tay RegSched Rep - 03/18/2022 2:56 PM EDT Caller: Arvin De La Rosa Relationship to patient: Self Best call back number: [phone] Chief complaint: ANXIETY Type of visit: ACUTE Requested date: Friday, MARCH 25, 2022 Additional notes: PATIENT STATES THAT HE SAW DR MORSE AT HIS OTHER OFFICE AND WANTED TO SEE IF HE COULD MAKE A NEW PATIENT APPOINTMENT. THE FIRST ONE THAT DR MORSE HAD WAS FOR 05/06/22 AND HE DID SCHEDULE THAT APPOINTMENT. documented in this encounter Plan of Treatment Not on file documented as of this encounter Visit Diagnoses Not on filedocumented in this encounter
--- NOTE | 2024-07-03 12:38 | XR_ITS ---
FINAL REPORT CLINICAL HISTORY: INJURY TO LEFT FOOT FINDINGS: AP, oblique and lateral views of the left foot were obtained. There is no acute fracture or dislocation. The joint spaces are preserved. Soft tissues are unremarkable. IMPRESSION: No acute osseous abnormality of the left foot. Reviewed, Interpreted and Dictated by Radha Hernandes MD Transcribed by Tali Shah Authenticated and [facility]
== END 2024-07-03 23:59 | disposition home or self-care (01) ==
LOC: RAD 12:35
PROVIDERS: PCP Family Medicine; Visit Provider Physician Assistant
DX: S99.922A Unspecified injury of left foot, initial encounter (principal)
CPT/HCPCS: 73630

== ENCOUNTER 2025-05-15 08:05 | Day surgery (SDC) | payer BC, SELFPAY ==
--- NOTE | 2025-05-09 10:40 | P.HP_ITS ---
History of Present Illness *Admission Date: 05/15/25 *Reason for visit:: Screening for colon cancer *History of present illness: Mr. De La Rosa is a 45-year-old gentleman who is here for initial screening colonoscopy. The examination is deemed medically necessary for screening colonoscopy. The patient has been seen, interviewed and examined prior to the procedure by both myself and the anesthesia provider. [facility] Disclaimer: The information contained in this section may have been updated after the patient was seen, as this information can be updated by other users. Medical History Bilateral tinnitus Dry both ear canals Weight gain Erectile dysfunction Hypertension Insomnia Chronic GERD Anxiety Surgical History H/O left knee surgery H/O hernia repair Family History Mother Cancer Grandfather Cancer Coronary artery disease Heart attack Stroke Grandmother Cancer Heart attack Father Coronary artery disease Diabetes Hypertension Social History Smoking Status: Never smoker alcohol intake: current alcohol intake frequency: holidays/special occasions only substance use type: denies use current occupational status: employed (retail management) Travel in the last 8 weeks?: None household members: spouse and children housing: house Have you lived/traveled outside US in past 30 days?: No Contact w/someone who lives/traveled outside US past 30 days?: No Exposure to someone with infectious disease in past 14 days?: No Do you have a fever (greater than 100.4 F or 38 C)?: No Have you tested positive for COVID-19?: No Exposed to someone with COVID-19 in past 14 days?: No Do you have a sore throat?: No Do you have a cough?: No Do you have any weakness?: No Are you experiencing any nausea/vomitting?: No Do you have any diarrhea?: No Are you experiencing any unusual bleeding?: No Do you have any muscle aches/pain?: No Do you have any abdominal pain?: No Are you experiencing loss of taste or smell?: No Other Medical History Have you received the Pneumonia Vaccine: No Review of Systems Review of Systems Review of systems (narrative): Negative *Cardiovascular Comments: Negative *Gastrointestinal Comments: Negative *Genitourinary Comments: Negative *Musculoskeletal Comments: Negative *Neurologic Comments: Negative Meds Home Medications and Allergies Home Medications ?Medication ?Instructions ?Recorded ?Confirmed ?Type semaglutide 0.25 mg or 0.5 mg (2 0.25 mg (0.368 mL) SQ WEEKLY #3 mL 11/01/23 05/15/25 Rx mg/3 mL) subcutaneous pen injector (Ozempic) losartan 25 mg tablet See Rx Instructions .Route 0 12/25/23 05/15/25 Rx .COMPLEX #90 tabs omeprazole 40 mg capsule,delayed See Rx Instructions . Route 12/25/23 05/15/25 Rx release .COMPLEX #90 caps venlafaxine 37.5 mg See Rx Instructions .Route 0 01/24/24 05/15/25 Rx capsule,extended release 24 hr .COMPLEX #90 caps simvastatin 20 mg tablet 20 mg PO DAILY #90 tabs /02/2705/15/25 Rx sodium sul 1.479 gram-potas ch See Rx Instructions PO PER PKG DIR 05/01/25 05/15/25 Rx 0.188 gram-magnes sul 0.225 gram colonscopy #24 tabs tablet (Sutab) New Prescriptions to Start Prescriptions: Allergies Allergy/AdvReac Type Severity Reaction Status Date / Time No Known Allergies Allergy Verified 05/15/25 08:43 Exam *Routine HEENT Exam Head: Present normocephalic Eye: Present EOMI and PERRL ENT: Present mucous membranes moist *Routine Neck Exam Neck: Present supple *Routine Respiratory Exam Respiratory: Present CTA bilaterally *Routine Cardiovascular Exam Cardiovascular: Present RRR *Routine Abdominal Exam Abdominal: Present soft and normoactive bowel sounds; Absent tenderness *Routine Rectal Exam Rectal:: deferred *Routine Genitalia Exam Genitalia:: deferred *Routine Extremities Exam Extremities: Absent cyanosis, clubbing or edema *Routine Skin Exam Skin: Present warm; Absent rash *Routine Neurological Exam Neurological: Present alert and oriented X3 Assessment and Plan *Assessment and plan (1) Screening for colon cancer: Status: Acute Category: Medical Code(s): Z12.11 - Plan A/P: 1. Screening for colon cancer is the preprocedural diagnosis. The patient will be anesthetized/sedated using MAC sedation. The patient has been seen and examined. Cardiac and lung assessment prior to the examination is stable. Proceed with planned screening colonoscopy.
[2025-05-13 09:40] VITALS: BMI 29.9
--- NOTE | 2025-05-14 07:52 | P.PCN_ITS ---
[facility] Procedure Note Date: 05/15/25 Time: 09:19 Procedure Note:: Colonoscopy Procedure Report: Colonoscopy with cold snare polypectomy and Endo Clip placement Endoscopist: Yandel Kelsey II, MD Referring physician: Michael Sanchez MD Date of Procedure: May 15, 2025 Equipment: [employer] [id number] adult colonoscope Sedation: MAC sedation Indication: Mr. De La Rosa is a 45-year-old gentleman who is here for initial screening colonoscopy. The patient reports that his mother had colon cancer in her mid 60s. His paternal grandmother had colon cancer. He also states that his father had colon polyps. He reports no abdominal pain, weight loss, change in his bowel habits or rectal bleeding. The examination is deemed medically necessary for screening colonoscopy. Procedure: Prior to the procedure, a history and physical exam was performed, and patient's medications and allergies were reviewed. The risks, benefits and alternatives of the sedation and procedure were discussed with the patient. All questions were answered and informed consent was obtained. The patient was brought to the procedure room. Patient identification and proposed procedure were verified by the physician and the nurse. The patient was placed in a left lateral decubitus position and the scope was passed under direct vision. Throughout the procedure, the patient's blood pressure, pulse, and oxygen saturations were monitored continuously. The colonoscopy was accomplished without difficulty. T he patient tolerated the procedure well. Findings: On digital rectal examination there was normal rectal tone. There were no external hemorrhoids. The prostate was 2+, smooth, soft, symmetric without nodules. The colonoscope was introduced through the anal canal to the rectum and advanced to the cecum. The ileocecal valve and appendiceal orifice were identified. The scope was advanced a short distance into the ileum which appeared grossly normal. The scope was then withdrawn into the colon. The cecum, ascending and transverse colon were grossly normal. There were 2 colon polyps (descending x 1 (4 mm) and sigmoid x 1 (8 to 9 mm)). Both of these were removed via cold snare polypectomy. A single Endo Clip was placed over the sigmoid polypectomy site to provide hemostasis. The rectum was normal and there were no other mucosal abnormalities identified. Upon retroflexion within the rectum there were grade 1-2 internal hemorrhoids. The preparation was excellent throughout with [place] Preparation Score of 9. The cecal time was 14 minutes. Impression: 1. Colonic polyps x 2 Plan: I will follow-up the polyp histology and recommend repeat screening/surveillance colonoscopy again in 5 years.
[2025-05-15 08:36] VITALS: BP 129/79; PULSE 67; RESP 16; O2SAT 96; BMI 29.9
[2025-05-15] MEDS: LACTATED RINGERS 1000ML 1,000 ML 50 ML IV (08:46)
--- NOTE | 2025-05-15 08:53 | P.PNANES_ITS ---
[facility] Disclaimer: The information contained in this section may have been updated after the patient was seen, as this information can be updated by other users. Medical History Bilateral tinnitus Dry both ear canals Weight gain Erectile dysfunction Hypertension Insomnia Chronic GERD Anxiety Surgical History H/O left knee surgery H/O hernia repair Family History Mother Cancer Grandfather Cancer Coronary artery disease Heart attack Stroke Grandmother Cancer Heart attack Father Coronary artery disease Diabetes Hypertension Social History Smoking Status: Never smoker alcohol intake: current alcohol intake frequency: holidays/special occasions only substance use type: denies use current occupational status: employed ([employer] management) Travel in the last 8 weeks?: None household members: spouse and children housing: house Have you lived/traveled outside US in past 30 days?: No Contact w/someone who lives/traveled outside US past 30 days?: No Exposure to someone with infectious disease in past 14 days?: No Do you have a fever (greater than 100.4 F or 38 C)?: No Have you tested positive for COVID-19?: No Exposed to someone with COVID-19 in past 14 days?: No Do you have a sore throat?: No Do you have a cough?: No Do you have any weakness?: No Are you experiencing any nausea/vomitting?: No Do you have any diarrhea?: No Are you experiencing any unusual bleeding?: No Do you have any muscle aches/pain?: No Do you have any abdominal pain?: No Are you experiencing loss of taste or smell?: No [facility] Anesthesia Checklist Patient Identification Patient Identification: Verbal (Name & ) Structural Data Admitted From: Home Planned Operative Procedure/s: colonoscopy Consent for Planned Operative Procedure(s) Verified: Yes NPO Status Verified Time NPO: 00:00 Airway Assessment Mallampati Score:: Class II C-Spine Mobility Assessed: Yes TMJ Mobility Assessed: Yes Dentition: Good Dentition Neurological Assessment Level of Consciousness: Awake, Alert and Appropriate Anesthesia Plan Anesthesia Risk discussed: Yes Anesthesia Plan: Verified ASA Class: II Anesthesia Type: MAC
[2025-05-15 09:23] VITALS: BP 133/80; PULSE 84; RESP 18; TEMP 36.6; O2SAT 95
[2025-05-15 09:33] VITALS: BP 130/76; PULSE 82; RESP 18; O2SAT 95
[2025-05-15 09:43] VITALS: BP 137/77; PULSE 68; RESP 18; O2SAT 96
[2025-05-15 09:53] VITALS: BP 130/83; PULSE 69; RESP 18; O2SAT 96
[2025-05-15 10:23] VITALS: BP 126/78; PULSE 68; RESP 18; TEMP 36.6; O2SAT 98
== END 2025-05-15 10:23 | disposition home or self-care (01) ==
PROVIDERS: PCP Family Medicine; Visit Provider Internal Medicine Gastroenterology
PROC: 0DJD8ZZ Inspection of Lower Intestinal Tract, Via Natural or Artificial Opening Endoscopic (ICD-10-PCS; CPT 45378; principal; 2025-05-15 09:30)
DX: Z12.11 Encounter for screening for malignant neoplasm of colon (principal); D12.4 Benign neoplasm of descending colon; D12.5 Benign neoplasm of sigmoid colon; K64.0 First degree hemorrhoids; K64.1 Second degree hemorrhoids; I10 Essential (primary) hypertension
CPT/HCPCS: 45385; J2003; J2704; J7120